=== PATIENT | female | born 1985 | race Caucasian/White ===

== ENCOUNTER 2017-08-07 15:39 | Emergency (ER) | payer OTHER ==
[~2017-08-07] VITALS: Ht 175.3 cm; Wt 54.4 kg
[2017-08-07 16:49] LABS: BASOPHIL % 0.1 % (0-2); PLATELET COUNT 461 x10^3mcL (130-400)
[2017-08-07 16:55] LABS: CALCIUM 8.7 mg/dL (8.5-10.1); CARBON DIOXIDE 30.2 mmol/L (21-32); CHLORIDE SERUM 104 mmol/L (98-107); CREATININE SERUM 0.9 mg/dL (0.6-1.0); GFR1 > 60 mL/min; GLUCOSE SERUM 136 mg/dL (74-106); POTASSIUM SERUM 4.6 mmol/L (3.5-5.1); SODIUM SERUM 139 mmol/L (136-145)
[2017-08-07 17:00] LABS: ALBUMIN 3.6 g/dL (3.4-5.0); ALKALINE PHOSPHATASE 64 U/L (46-116); ALT/SGPT 16 U/L (14-59); AST/SGOT 16 U/L (15-37); TOTAL PROTEIN, SERUM 7.7 g/dL (6.4-8.2)
[2017-08-07 18:07] VITALS: BP 117/82
== END 2017-08-07 18:07 | disposition home or self-care (01) ==
LOC: EDBD 15:39 → ED 15:39
PROVIDERS: Emergency Medicine
DX: R56.9 Unspecified convulsions (principal)
CPT/HCPCS: J1885